=== PATIENT | female | born 1955 | race Caucasian/White ===

== ENCOUNTER → 2024-11-22 08:37 | Outpatient (REF) | payer MEDICARE, OTHER, SELFPAY | LOC: EMG 08:37 | PROVIDERS: ATTENDING PHYSICIAN Nurse Practitioner Adult Health | DX: R20.2 Paresthesia of skin (principal) | CPT/HCPCS: 95886; 95912 ==

== ENCOUNTER → 2024-12-03 08:18 | Outpatient (REF) | payer MEDICARE, OTHER, SELFPAY | LOC: HWRAD 08:18 | PROVIDERS: ATTENDING PHYSICIAN Nurse Practitioner Adult Health | DX: Z78.0 Asymptomatic menopausal state (principal); Z12.31 Encounter for screening mammogram for malignant neoplasm of breast | CPT/HCPCS: 77063; 77067; 77080 ==

== ENCOUNTER → 2024-12-09 08:11 | Outpatient (REF) | payer MEDICARE, OTHER, SELFPAY | LOC: WDC 08:11 | PROVIDERS: ATTENDING PHYSICIAN Nurse Practitioner Adult Health | DX: R92.8 Other abnormal and inconclusive findings on diagnostic imaging of breast (principal) | CPT/HCPCS: 76642 ==

== ENCOUNTER → 2025-06-19 18:37 | Outpatient (REF) | payer MEDICARE, OTHER, SELFPAY | LOC: WDC 18:37 | PROVIDERS: ATTENDING PHYSICIAN Nurse Practitioner Adult Health | DX: R92.8 Other abnormal and inconclusive findings on diagnostic imaging of breast (principal) | CPT/HCPCS: 77061; 77065 ==